=== PATIENT | female | born 1950 | race Caucasian/White ===

== ENCOUNTER → 2017-03-18 | Outpatient (CLI) | payer OTHER ==
[~2017-03-18] MED LIST: ESTR1GEL TP; PROG100C PO
[2017-03-18 13:17] LABS: HEMOGLOBIN 14.9 GM/DL (11.6-15.3); MEAN CELL VOLUME 89.6 FL (80.0-100.0); MEAN CORPUSCULAR HEMOGLOBIN 30.4 PG (27.0-34.0); MEAN CORPUSCULAR HGB CONC 33.9 % (32.0-36.0); PLATELET COUNT 212 TH/MM3 (150-450); RED BLOOD COUNT 4.91 MIL/MM3 (4.00-5.30); RED CELL DISTRIBUTION WIDTH 14.6 % (11.6-17.2); WHITE BLOOD COUNT 5.4 TH/MM3 (4.0-11.0)
--- NOTE | 2017-03-18 13:39 | RADRPT ---
EXAM DATE/TIME: 03/18/2017 13:03 [place] COMPARISON: No previous studies available for comparison. INDICATIONS : Evaluate for pneumonia, pneumothorax, and communicable diseases. Pre-op endometrial biopsy. MEDICAL HISTORY : None. SURGICAL HISTORY : None. ENCOUNTER: Initial ACUITY: 1 day PAIN SCORE: 0/10 LOCATION: Bilateral chest FINDINGS: PA and lateral views of the chest demonstrate the lungs to be symmetrically aerated without evidence of mass, infiltrate or effusion. The cardiomediastinal contours are unremarkable. Degenerative andrade es and mild scoliosis of the thoracolumbar spine are noted. CONCLUSION: No acute cardiopulmonary disease. Degenerative changes and mild scoliosis of the thor acolumbar spine. Zhen Archibald MD on March 18, 2017 at 13:36 Board Certified Radiologist. This report was verified electronically.
[2017-03-18 13:40] LABS: BICARBONATE 29.2 MEQ/L (21.0-32.0); CALCIUM 9.6 MG/DL (8.5-10.1); CREATININE 0.48 MG/DL (0.50-1.00)
[2017-03-18 13:48] LABS: BILIRUBIN, URINE NEG (NEG); BLOOD, URINE NEG (NEG); CALCIUM OXALATE CRYSTALS,URINE MANY /hpf; GLUCOSE,URINE NEG (NEG); KETONE, URINE NEG (NEG); MUCUS URINE FEW /lpf (OCC); NITRITE,URINE NEG (NEG); PH, URINE 5.5 (5.0-8.5); SQUAMOUS EPITHELIAL CELL URINE 1 /hpf (0-5); URINE COLOR YELLOW (YELLW/STRAW); URINE LEUKOCYTE ESTERASE NEG (NEG)
--- NOTE | 2017-03-19 20:17 | EKG ---
Date Performed: 03/18/2017 Time Performed: 12:46:41 PTAGE: 66 years EKG: Sinus rhythm NORMAL ECG NO PREVIOUS TRACING DOCTOR: Isreal Mehta Interpretating Date/Time 03/19/2017 20:14:43
== END ==
LOC: CPRE 11:59
PROVIDERS: ATTEND Obstetrics & Gynecology
DX: Z01.812 Encounter for preprocedural laboratory examination (principal); Z01.811 Encounter for preprocedural respiratory examination; Z01.810 Encounter for preprocedural cardiovascular examination; R93.8 Abnormal findings on diagnostic imaging of other specified body structures
CPT/HCPCS: 36415; 71046; 80048; 81001; 85027; 93005

== ENCOUNTER → 2017-03-24 | Day surgery (SDC) | payer OTHER ==
[~2017-03-24] VITALS: Ht 160 cm; Wt 56.3 kg
[~2017-03-24] MED LIST changes: +*MEPERIDINE 25 MG INJ VIAL PERIprocedural Use ONLY ONE; +ACETAMINOPHEN/HYDROcodone 325 MG/5 MG TAB PO PRN; +CHLORHEXIDINE GLUCONATE 2 % 1 PACK (2 CLOTHS) TOPICAL PRN; +DEXAMETHASONE SOD PHOS 4 MG/ML VIAL IV ONE; +DO NOT ADM ANY ANTICOAGULANT DRUGS PRN; +ESMOLOL HCL 100 MG/10 ML VIAL IV ONE; +GLYCOPYRROLATE 1 MG/5 ML SYRINGE IV PUSH ONE; +KETOROLAC TROMETHAMINE 30 MG/ML (IVP) VIAL IV PUSH ONE; +KETOROLAC TROMETHAMINE 60 MG/2 ML (IM) VIAL IM PRN; +LACTATED RINGER'S 1000 ML IV PRN; +LIDOCAINE HCL 1% PF 5 ML SYRINGE OTHER ONE; +METOPROLOL TARTRATE 25 MG TAB PO PRN; +MIDAZOLAM HCL 2 MG/2 ML VIAL ONE; +NEOSTIGMINE 5 MG/5 ML SYRINGE IV PUSH ONE; +ONDANSETRON HCL 4 MG/2 ML VIAL IV ONE; +ONDANSETRON HCL 4 MG/2 ML VIAL IV PRN; +OXYTOCIN 10 UNIT/ML AMP ONE; +POVIDONE IODINE 5% (ANTISEPSIS KIT) 4 APPLICATIONS EACH NARE PRN; +PROPOFOL 200 MG/20 ML AMP IV ONE; +ROCURONIUM INJ 50 MG/5 ML SYRINGE IV PUSH ONE; +SODIUM CHLORID 0.9% 500 ML IV PRN; +ceFAZolin 2 GM PREMIX 50 ML IV SCH; +ceFAZolin 2 GM PREMIX 50 ML ONE; +ePHEDrine/NS 25 MG/5 ML SYRINGE IV ONE
[2017-03-24 10:05] VITALS: BP 138/80; PULSE 57; RESP 16; TEMP 97; O2SAT 100
--- NOTE | 2017-03-24 14:57 | MP ---
cc: MARTHA ZAPATA DATE OF SURGERY 03/24/2017 PREOPERATIVE DIAGNOSIS 1. Postmenopausal bleeding. 2. Thickened endometrium. POSTOPERATIVE DIAGNOSIS 1. Postmenopausal bleeding. 2. Thickened endometrium. PROCEDURE 1. Examination under anesthesia. 2. Hysteroscopy. 3. Dilatation and curettage. SURGEON Dr. Zapata. ANESTHESIA General. FLUIDS 400 cc crystalloid. ESTIMATED BLOOD LOSS 10 cc. FINDINGS Patient voided prior to the procedure. No straight cath was performed. At hysteroscopy normal uterine cavity was noted, bilateral tubal ostia were visualized. DETAILS OF PROCEDURE The patient was taken to the operating room where general anesthesia was found to be adequate. She was then prepped and draped in normal sterile fashion in the dorsal lithotomy position. A weighted speculum was placed in the vagina. A single-tooth tenaculum was applied to the anterior lip of the cervix. The uterus sounded to 8 cm. The cervix was gently dilated with Kali dilators sizes 9 through 18. Hysteroscopy was then performed with less than 60 cc of normal saline. Normal endometrium was noted and bilateral tubal ostia were visualized. The hysteroscope was removed and endocervical curettage was performed sharply and sent to pathology. An endometrial curettage was performed sharply and sent to pathology. All the instruments were removed from the vagina. Hemostasis was assured. The patient was transferred to the recovery room in stable condition. MD JC Clemente/HAYES /8:43 AM /2:48 PM
== END | disposition home or self-care (01) ==
LOC: HSDC 06:05
PROVIDERS: ATTEND Obstetrics & Gynecology
DX: N95.0 Postmenopausal bleeding (principal); R93.8 Abnormal findings on diagnostic imaging of other specified body structures; M85.80 Other specified disorders of bone density and structure, unspecified site; H26.9 Unspecified cataract; Z79.890 Hormone replacement therapy
CPT/HCPCS: 00952; 58558; 86850; 86900; 86901; 88305; J0690; J1100; J1885; J2175; J2250; J2405; J2710; J7120; J2590